=== PATIENT | male | born 1940 | race Hispanic/Latino ===

== ENCOUNTER 2018-06-06 14:34 | Inpatient (IN) | payer MEDICARE ==
[2018-06-06] MEDS ORDERED: SUBLIMAZE IV ONE ×2 (15:52→18:57)
[2018-06-06] MEDS ORDERED: ZOFRAN IV ONE (15:52)
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
[2018-06-06 18:14] LABS: Hematocrit 44.3 % (35.5-45.6); Hemoglobin 14.4 gm/dl (11.8-15.2); Mean Corpuscular HGB Conc 33 % (32-34); Mean Corpuscular Volume 89 fl (84-94); Platelet Count 198 K/mm3 (140-440); Red Blood Count 4.98 M/mm3 (3.65-5.03); Red Cell Distribution Width 14.5 % (13.2-15.2)
[2018-06-06 18:22] LABS: INR 1.17 (0.87-1.13); Partial Thromboplastin Time 26.3 Sec. (24.2-36.6)
--- NOTE | 2018-06-06 19:18 | XRay Report ---
FINAL REPORT EXAM: XR TIBIA FIBULA 2V RT HISTORY: pain after fall TECHNIQUE: Left lower leg PA and lateral views PRIORS: None. FINDINGS: No fracture is identified. The joint spaces are within normal limits. No focal bony lesion identified . No radiopaque foreign body seen. IMPRESSION: Negative no acute abnormality.
--- NOTE | 2018-06-06 19:19 | XRay Report ---
FINAL REPORT PROCEDURE: XR HIP 2-3V RT TECHNIQUE: Two AP views of the pelvis were obtained as well as a cross-table lateral view of the lef t hip. HISTORY: pain after fall COMPARISON: No prior studies are available for comparison. FINDINGS: No fracture or dislocation visualized. Mild to moderate degenerative changes seen lower lumbar spine and SI joints. Minimal degenerative changes seen in the hips. Large left inguinal hernia containing l oops of bowel appears to be visualized on the left. IMPRESSION: Degenerative changes are present. No definite fracture or dislocation is seen. If clinically indicate d CT scan could be obtained for further evaluation. Large left inguinal hernia containing loops of bowel appears to be visualized.
--- NOTE | 2018-06-06 19:19 | XRay Report ---
FINAL REPORT EXAM: XR SHOULDER 2+V RT HISTORY: pain after fall TECHNIQUE: Right shoulder three views PRIORS: None. FINDINGS: There is severe narrowing at the glenohumeral joint space with prominent inferior osteophyte. There i s superior migration of the humerus narrowing the subacromial joint space. A no acute fracture or dis location is identified. Adjacent bony and soft tissue structures are unremarkable. IMPRESSION: Advanced degenerative changes at the shoulder with marked joint space narrowing
--- NOTE | 2018-06-06 19:19 | Cat Scan Report ---
FINAL REPORT EXAM: CT CERVICAL SPINE WO CON HISTORY: pain after fall TECHNIQUE: CT cervical spine with reconstructions PRIORS: None. FINDINGS: Vertebral bodies demonstrate normal height and alignment. There is multilevel degenerative disc space narrowing with disc space narrowing from C3-C4 through C7-T1. Anterior and posterior osteophytes not ed. Facet joint arthropathy noted throughout the cervical spine. The facet joints demonstrate normal alignment. The spinous processes are intact. Craniocervical junction is unremarkable. C1 and C2 are intact. 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 No acute traumatic abnormality identified
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
--- NOTE | 2018-06-06 19:19 | XRay Report ---
FINAL REPORT EXAM: XR KNEE 3V RT HISTORY: pain after fall TECHNIQUE: Right knee three views PRIORS: None. FINDINGS: There is marked tricompartmental joint space narrowing. There is lateral meniscal calcification prese nt. No acute fracture identified. No evidence for joint effusion. 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 No acute traumatic abnormality identified
[2018-06-06 19:21] LABS: Basophils % (Manual) 0 % (0.0-1.8); Eosinophils % (Manual) 0 % (0.0-4.3); Total Cells Counted 100
[2018-06-06 19:22] LABS: Platelet Estimate Consistent w Auto; RBC Morphology Normal
[2018-06-06 19:27] LABS: BUN/Creatinine Ratio 20; Blood Urea Nitrogen 40 mg/dL (9-20)
[2018-06-06 19:28] LABS: Calcium 9.3 mg/dL (8.4-10.2); Creatine Kinase MB 3.1 ng/mL (0.0-4.0)
[2018-06-06] MEDS ORDERED: KIONEX PO ONE (19:40)
[2018-06-06] MEDS ORDERED: PLAVIX PO ONE (19:40)
[2018-06-06 19:41] LABS: Bilirubin,Urine NEG (Negative); Blood,Urine MOD (Negative); Color,Urine Yellow (Yellow); Mucus,Urine FEW /HPF; Urobilinogen,Urine < 2.0 mg/dL (<2.0)
--- NOTE | 2018-06-06 20:49 | History and Physical Report ---
History of Present Illness Date of examination: 06/06/18 Medications and Allergies Allergies Allergy/AdvReac Type Severity Reaction Status Date / Time Penicillins Allergy Unknown Verified 06/06/18 14:55 Sulfa (Sulfonamide Allergy Unknown Verified 06/06/18 14:55 Antibiotics) Exam - Constitutional Vitals: Temp Pulse Resp BP Pulse Ox 98.8 F 96 H 20 140/77 96 06/06/18 14:51 06/06/18 20:30 06/06/18 20:30 06/06/18 20:30 06/06/18 20:30 Results - Labs CBC & Chem 7: 06/06/18 15:50 06/06/18 15:50 Labs: Laboratory Last Values WBC 23.3 K/mm3 (4.5-11.0) H 06/06/18 15:50 RBC 4.98 M/mm3 (3.65-5.03) 06/06/18 15:50 Hgb 14.4 gm/dl (11.8-15.2) 06/06/18 15:50 Hct 44.3 % (35.5-45.6) 06/06/18 15:50 MCV 89 fl (84-94) 06/06/18 15:50 MCH 29 pg (28-32) 06/06/18 15:50 MCHC 33 % (32-34) 06/06/18 15:50 RDW 14.5 % (13.2-15.2) 06/06/18 15:50 Plt Count 198 K/mm3 (140-440) 06/06/18 15:50 Add Manual Diff Complete 06/06/18 15:50 Total Counted 100 06/06/18 15:50 Seg Neuts % (Manual) 85.0 % (40.0-70.0) H 06/06/18 15:50 Band Neutrophils % 0 % 06/06/18 15:50 Lymphocytes % (Manual) 3.0 % (13.4-35.0) L 06/06/18 15:50 Reactive Lymphs % (Man) 0 % 06/06/18 15:50 Monocytes % (Manual) 12.0 % (0.0-7.3) H 06/06/18 15:50 Eosinophils % (Manual) 0 % (0.0-4.3) 06/06/18 15:50 Basophils % (Manual) 0 % (0.0-1.8) 06/06/18 15:50 Metamyelocytes % 0 % 06/06/18 15:50 Myelocytes % 0 % 06/06/18 15:50 Promyelocytes % 0 % 06/06/18 15:50 Blast Cells % 0 % 06/06/18 15:50 Nucleated RBC % Not Reportable 06/06/18 15:50 Seg Neutrophils # Man 19.8 K/mm3 (1.8-7.7) H 06/06/18 15:50 Band Neutrophils # 0.0 K/mm3 06/06/18 15:50 Lymphocytes # (Manual) 0.7 K/mm3 (1.2-5.4) L 06/06/18 15:50 Abs React Lymphs (Man) 0.0 K/mm3 06/06/18 15:50 Monocytes # (Manual) 2.8 K/mm3 (0.0-0.8) H 06/06/18 15:50 Eosinophils # (Manual) 0.0 K/mm3 (0.0-0.4) 06/06/18 15:50 Basophils # (Manual) 0.0 K/mm3 (0.0-0.1) 06/06/18 15:50 Metamyelocytes # 0.0 K/mm3 06/06/18 15:50 Myelocytes # 0.0 K/mm3 06/06/18 15:50 Promyelocytes # 0.0 K/mm3 06/06/18 15:50 Blast Cells # 0.0 K/mm3 06/06/18 15:50 WBC Morphology Not Reportable 06/06/18 15:50 Hypersegmented Neuts Not Reportable 06/06/18 15:50 Hyposegmented Neuts Not Reportable 06/06/18 15:50 Hypogranular Neuts Not Reportable 06/06/18 15:50 Smudge Cells Not Reportable 06/06/18 15:50 Toxic Granulation Not Reportable 06/06/18 15:50 Toxic Vacuolation Not Reportable 06/06/18 15:50 Dohle Bodies Not Reportable 06/06/18 15:50 Pelger-Huet Anomaly Not Reportable 06/06/18 15:50 Stefania Rods Not Reportable 06/06/18 15:50 Platelet Estimate Consistent w auto 06/06/18 15:50 Clumped Platelets Not Reportable 06/06/18 15:50 Plt Clumps, EDTA Not Reportable 06/06/18 15:50 Large Platelets Not Reportable 06/06/18 15:50 Giant Platelets Not Reportable 06/06/18 15:50 Platelet Satelliting Not Reportable 06/06/18 15:50 Plt Morphology Comment Not Reportable 06/06/18 15:50 RBC Morphology Normal 06/06/18 15:50 Dimorphic RBCs Not Reportable 06/06/18 15:50 Polychromasia Not Reportable 06/06/18 15:50 Hypochromasia Not Reportable 06/06/18 15:50 Poikilocytosis Not Reportable 06/06/18 15:50 Anisocytosis Not Reportable 06/06/18 15:50 Microcytosis Not Reportable 06/06/18 15:50 Macrocytosis Not Reportable 06/06/18 15:50 Spherocytes Not Reportable 06/06/18 15:50 Pappenheimer Bodies Not Reportable 06/06/18 15:50 Sickle Cells Not Reportable 06/06/18 15:50 Target Cells Not Reportable 06/06/18 15:50 Tear Drop Cells Not Reportable 06/06/18 15:50 Ovalocytes Not Reportable 06/06/18 15:50 Helmet Cells Not Reportable 06/06/18 15:50 Yeh-Baileyton Bodies Not Reportable 06/06/18 15:50 Norco Rings Not Reportable 06/06/18 15:50 Cassy Cells Not Reportable 06/06/18 15:50 Bite Cells Not Reportable 06/06/18 15:50 Crenated Cell Not Reportable 06/06/18 15:50 Elliptocytes Not Reportable 06/06/18 15:50 Acanthocytes (Spur) Not Reportable 06/06/18 15:50 Rouleaux Not Reportable 06/06/18 15:50 Hemoglobin C Crystals Not Reportable 06/06/18 15:50 Schistocytes Not Reportable 06/06/18 15:50 Malaria parasites Not Reportable 06/06/18 15:50 Enoch Bodies Not Reportable 06/06/18 15:50 Hem Pathologist Commnt No 06/06/18 15:50 PT 15.3 Sec. (12.2-14.9) H 06/06/18 15:50 INR 1.17 (0.87-1.13) H 06/06/18 15:50 APTT 26.3 Sec. (24.2-36.6) 06/06/18 15:50 Sodium 139 mmol/L (137-145) 06/06/18 15:50 Potassium 5.4 mmol/L (3.6-5.0) H 06/06/18 15:50 Chloride 106.1 mmol/L (98-107) 06/06/18 15:50 Carbon Dioxide 19 mmol/L (22-30) L 06/06/18 15:50 Anion Gap 19 mmol/L 06/06/18 15:50 BUN 40 mg/dL (9-20) H 06/06/18 15:50 Creatinine 2.0 mg/dL (0.8-1.5) H 06/06/18 15:50 Estimated GFR 33 ml/min 06/06/18 15:50 BUN/Creatinine Ratio 20 % 06/06/18 15:50 Glucose 108 mg/dL (75-100) H 06/06/18 15:50 Calcium 9.3 mg/dL (8.4-10.2) 06/06/18 15:50 Total Creatine Kinase 242 units/L (55-170) H 06/06/18 15:50 CK-MB (CK-2) 3.1 ng/mL (0.0-4.0) 06/06/18 15:50 CK-MB (CK-2) Rel Index 1.2 (0-4) 06/06/18 15:50 Troponin T < 0.010 ng/mL (0.00-0.029) 06/06/18 15:50 Urine Color Yellow (Yellow) 06/06/18 18:44 Urine Turbidity Clear (Clear) 06/06/18 18:44 Urine pH 5.0 (5.0-7.0) 06/06/18 18:44 Ur Specific Vincent 1.013 (1.003-1.030) 06/06/18 18:44 Urine Protein 30 mg/dl mg/dL (Negative) 06/06/18 18:44 Urine Glucose (UA) Neg mg/dL (Negative) 06/06/18 18:44 Urine Ketones Neg mg/dL (Negative) 06/06/18 18:44 Urine Blood Mod (Negative) 06/06/18 18:44 Urine Nitrite Pos (Negative) 06/06/18 18:44 Urine Bilirubin Neg (Negative) 06/06/18 18:44 Urine Urobilinogen < 2.0 mg/dL (<2.0) 06/06/18 18:44 Ur Leukocyte Esterase Mod (Negative) 06/06/18 18:44 Urine WBC (Auto) 53.0 /HPF (0.0-6.0) H 06/06/18 18:44 Urine RBC (Auto) 1.0 /HPF (0.0-6.0) 06/06/18 18:44 Urine Mucus Few /HPF 06/06/18 18:44 - Imaging and Cardiology Imaging and Cardiology: CT C Spine 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 There is evidence of mild atrophy and gliosis. No other abnormalities are identified. If clinical symptoms persist or worsen consider follow-up CT scan or MRI for further evaluation. Hip Xray IMPRESSION: Degenerative changes are present. No definite fracture or dislocation is seen. If clinically indicated CT scan could be obtained for further evaluation. Large left inguinal hernia containing loops of bowel appears to be visualized. Knee X ray Right knee three views PRIORS: None. FINDINGS: There is marked tricompartmental joint space narrowing. There is lateral meniscal calcification present. No acute fracture identified. No evidence for joint effusion. IMPRESSION: Advanced tricompartmental DJD. Meniscal calcification may reflect underlying CPPD a rthropathy. No acute traumatic abnormality identified \ Rt Shoulder There is severe narrowing at the glenohumeral joint space with prominent inferior osteophyte. There is superior migration of the humerus narrowing the subacromial joint space. A no acute fracture or dislocation is identified. Adjac ent bony and soft tissue structures are unremarkable. IMPRESSION: Advanced degenerative changes at the shoulder with marked joint space narrowing TIBIA FIBULA 2V RT HISTORY: pain after fall TECHNIQUE: Left lower leg PA and lateral views PRIORS: None. FINDINGS: No fracture is identified. The joint spaces are within normal limits. No focal bony lesion identified. No radiopaque foreign body seen. IMPRESSION: Negative no acute abnormality.
[2018-06-06] MEDS ORDERED: ZOFRAN IV PRN (21:11)
[2018-06-06] MEDS ORDERED: TYLENOL PO PRN (21:11)
[2018-06-06] MEDS ORDERED: IBUPROFEN PO PRN (21:12)
[2018-06-06] MEDS ORDERED: COZAAR PO ONE (21:15)
[2018-06-06] MEDS ORDERED: PLAVIX ONE (21:44)
[2018-06-07] MEDS: NACL 0.9% 1000 ML 1,000 ML IV SCH ×2 (01:15→14:32)
[2018-06-07] MEDS: LOVENOX SUB-Q SCH ×3 (01:15→21:36)
[2018-06-07] MEDS: SODIUM CHLORIDE FLUSH SYRINGE 10 ML IV SCH ×3 (01:15→21:38)
[2018-06-07] MEDS: DILAUDID IV PRN ×6 (01:29→21:36)
--- NOTE | 2018-06-07 02:28 | Event Note ---
Date: 06/06/18 See H/p in reports Frequent falls Alone in Home most of tne time
--- NOTE | 2018-06-07 04:40 | History and Physical Report ---
CHIEF COMPLAINT: Frequent falls. HISTORY OF PRESENT ILLNESS: A 78-year-old male with history of severe arthritis and hypertension, has been falling for the past 1 month and did not tell his son or others. Today, he fell down twice. Second time, he could not get up and he was lying in the same place for about 5 hours. The patient does not use walker. No loss of consciousness. No syncope. The patient has pain in the right shoulder and right knee about 8/10. PAST MEDICAL HISTORY: Significant for no hypertension. PAST SURGICAL HISTORY: None. SOCIAL HISTORY: Does not smoke. Lives alone and son goes to work. FAMILY HISTORY: None. REVIEW OF SYSTEMS: Significant for pain in right shoulder, right knee and right side of the body. Otherwise, review of systems negative. PHYSICAL EXAMINATION: GENERAL: Elderly male, cooperative during examination. VITAL SIGNS: Temperature 98.8, pulse is 106, respirations 20, blood pressure 154/98. HEENT: Unremarkable. Pupils are equal and reactive. NECK: Supple, no lymphadenopathy, no thyromegaly. LUNGS: Clear to auscultation and percussion. Good air entry. CARDIOVASCULAR: S1, S2 heard. No gallop, no murmur, no rub. Apical impulse in the left fifth intercostal space and midclavicular line. ABDOMEN: Soft and benign. No hepatosplenomegaly. No guarding, no rigidity. Hernial orifices are normal. CENTRAL NERVOUS SYSTEM: Left inguinal hernia present. LABORATORY DATA: White count is 23,300, H and H is 14.4 and 44.3, BUN and creatinine 40 and 2.0, potassium is 5.4. Glucose is 108. Right hip x-ray, right shoulder x-ray, right knee x-ray, right tib-fib x-ray showed no fracture. CT of the head and cervical CT negative. CT of the C-spine showed degenerative arthritis. ASSESSMENT AND PLAN: 1. Frequent falls. The patient does not use walker. The patient needs walker. Also, acute rehabilitation. Maybe long-term facility for 4-6 weeks. 2. Hypertension. Continue antihypertensives.-[id number] or Losartan 50 mg po qd 3. Deep venous thrombosis prophylaxis, Lovenox 40 mg subcutaneous daily and GI prophylaxis 4. Leukocytosis, possible demargination. No source of infection found.Patient on Prednisone 20 mg po every 3 days or when he wants to take it-Prescribed by Dr Jessie Crowell a direct support worker for his arthritis.D/w daughter and i stopped the prednisone which may be sausing the Leukocytosis. 5.Hypothyroidism Cont Levothyroxine.Check TSH JOB# [id number] VSM/NTS SAIGED
[2018-06-07 05:26] LABS: Basophils # (Auto) 0.1 K/mm3 (0.0-0.1); Basophils % (Auto) 0.3 % (0.0-1.8); Eosinophils # (Auto) 0.1 K/mm3 (0.0-0.4); Eosinophils % (Auto) 0.7 % (0.0-4.3); Hematocrit 41.9 % (35.5-45.6); Hemoglobin 13.4 gm/dl (11.8-15.2); Lymphocytes # (Auto) 1.6 K/mm3 (1.2-5.4); Lymphocytes % (Auto) 8.3 % (13.4-35.0); Mean Corpuscular HGB Conc 32 % (32-34); Mean Corpuscular Volume 90 fl (84-94); Monocytes # (Auto) 1.7 K/mm3 (0.0-0.8); Monocytes % (Auto) 9.2 % (0.0-7.3); Platelet Count 168 K/mm3 (140-440); Red Blood Count 4.66 M/mm3 (3.65-5.03); Red Cell Distribution Width 14.6 % (13.2-15.2)
[2018-06-07 05:41] LABS: Albumin 3.7 g/dL (3.9-5); Calcium 8.6 mg/dL (8.4-10.2)
[2018-06-07] MEDS ORDERED: SYNTHROID PO SCH (06:00)
[2018-06-07] MEDS ORDERED: SYNTHROID PO NR (08:00)
--- NOTE | 2018-06-07 08:05 | Progress Note ---
Assessment and Plan Assessment and plan: The patient is 78-year-old male with past medical hx of HTN and severe Arthritis on chronic prednisone presenting with chief complaint of right-sided weakness and fall. The patient states this morning his right knee buckled causing him to fall striking both his shoulders and the back of his head the patient states family helped him to the sofa. According to documentation from the ED The patient states he later attempted to go to the bathroom and while standing suddenly felt woozy and felt himself falling towards his left. Patient states he noticed weakness in his right upper extremity and right lower extremity as he fell to the ground. Patient denies loss of consciousness but states he was unable to move his right lower extremity and had a weakness in the right upper extremity forcing him to stay on the ground for approximately 5 hours. The patient eventually called to the cell phone and called family who came to the home, broke in and called EMS. The patient states he is now able to move his right lower extremity but has significant pain in the right knee, neck and right shoulder. The patient gets his pain score of 10/10. Patient denies dysarthria or dysphagia. Patient states she had numbness in the left index finger, middle finger and ring finger for approximately 5 hours. 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 - Case management to discuss with family about appropriateness of patients current living condition - Patient recieved plavix in ED with concern for TIA. Doubt TIA OR CVA But will rule out. - Neurology consult. MRI, Carotid ultrasound, statins -DVT/GI prophy Discussed with Patient and family. will also consider SNF if PT so advise. History Interval history: Patient is seen today for: Multiple small right-sided joints pains Seen and examined at bedside; 24hour events reviewed; nursing staff ; no adverse overnight events reported to me; Denies any chest pain, nausea, vomiting, diarrhea No fever noted blood pressure controlled Hospitalist Physical - Physical exam Narrative exam: VITAL SIGNS: Reviewed. GENERAL: The patient appeared well nourished and normally developed, Lethergic . Vital signs as documented. HEAD: No signs of head trauma. EYES: Pupils are equal. Extraocular motions intact. EARS: Hearing grossly intact. MOUTH: Oropharynx is normal. NECK: No adenopathy, no JVD. CHEST: Chest with clear breath sounds bilaterally. No wheezes, rales, or rhonchi. CARDIAC: Regular rate and rhythm. S1 and S2, without murmurs, gallops, or rubs. VASCULAR: No Edema. Peripheral pulses normal and equal in all extremities. ABDOMEN: Soft, without detectable tenderness. No sign of distention. No rebound or guarding, and no masses palpated. Bowel Sounds normal. MUSCULOSKELETAL: limited range of motion at the . Extremities without clubbing, cyanosis or edema. NEUROLOGIC EXAM: Alert and oriented x 3. No focal sensory or strength deficits. Speech normal. Follows commands. PSYCHIATRIC: Mood normal. SKIN: No rash or lesions. - Constitutional Vitals: Temp Pulse Resp BP Pulse Ox 98.8 F 99 H 20 138/58 94 06/06/18 14:51 06/06/18 23:20 06/07/18 03:42 06/06/18 23:20 06/06/18 23:20 Results - Labs CBC & Chem 7: 06/07/18 04:29 06/07/18 04:29 Labs: Laboratory Last Values WBC 18.8 K/mm3 (4.5-11.0) H 06/07/18 04:29 RBC 4.66 M/mm3 (3.65-5.03) 06/07/18 04:29 Hgb 13.4 gm/dl (11.8-15.2) 06/07/18 04:29 Hct 41.9 % (35.5-45.6) 06/07/18 04:29 MCV 90 fl (84-94) 06/07/18 04:29 MCH 29 pg (28-32) 06/07/18 04:29 MCHC 32 % (32-34) 06/07/18 04:29 RDW 14.6 % (13.2-15.2) 06/07/18 04:29 Plt Count 168 K/mm3 (140-440) 06/07/18 04:29 Lymph % (Auto) 8.3 % (13.4-35.0) L 06/07/18 04:29 Starr % (Auto) 9.2 % (0.0-7.3) H 06/07/18 04:29 Eos % (Auto) 0.7 % (0.0-4.3) 06/07/18 04: Baso % (Auto) 0.3 % (0.0-1.8) 06/07/18 04: Lymph # 1.6 K/mm3 (1.2-5.4) 06/07/18 04: Starr # 1.7 K/mm3 (0.0-0.8) H 06/07/18 04:29 Eos # 0.1 K/mm3 (0.0-0.4) 06/07/18 04: Baso # 0.1 K/mm3 (0.0-0.1) 06/07/18 04:29 Add Manual Diff Complete 06/06/18 15:50 Total Counted 100 06/06/18 15:50 Seg Neutrophils % 81.5 % (40.0-70.0) H 06/07/18 04:29 Seg Neuts % (Manual) 85.0 % (40.0-70.0) H 06/06/18 15:50 Band Neutrophils % 0 % 06/06/18 15:50 Lymphocytes % (Manual) 3.0 % (13.4-35.0) L 06/06/18 15:50 Reactive Lymphs % (Man) 0 % 06/06/18 15:50 Monocytes % (Manual) 12.0 % (0.0-7.3) H 06/06/18 15:50 Eosinophils % (Manual) 0 % (0.0-4.3) 06/06/18 15:50 Basophils % (Manual) 0 % (0.0-1.8) 06/06/18 15:50 Metamyelocytes % 0 % 06/06/18 15:50 Myelocytes % 0 % 06/06/18 15:50 Promyelocytes % 0 % 06/06/18 15:50 Blast Cells % 0 % 06/06/18 15:50 Nucleated RBC % Not Reportable 06/06/18 15:50 Seg Neutrophils # 15.3 K/mm3 (1.8-7.7) H 06/07/18 04:29 Seg Neutrophils # Man 19.8 K/mm3 (1.8-7.7) H 06/06/18 15:50 Band Neutrophils # 0.0 K/mm3 06/06/18 15:50 Lymphocytes # (Manual) 0.7 K/mm3 (1.2-5.4) L 06/06/18 15:50 Abs React Lymphs (Man) 0.0 K/mm3 06/06/18 15:50 Monocytes # (Manual) 2.8 K/mm3 (0.0-0.8) H 06/06/18 15:50 Eosinophils # (Manual) 0.0 K/mm3 (0.0-0.4) 06/06/18 15:50 Basophils # (Manual) 0.0 K/mm3 (0.0-0.1) 06/06/18 15:50 Metamyelocytes # 0.0 K/mm3 06/06/18 15:50 Myelocytes # 0.0 K/mm3 06/06/18 15:50 Promyelocytes # 0.0 K/mm3 06/06/18 15:50 Blast Cells # 0.0 K/mm3 06/06/18 15:50 WBC Morphology Not Reportable 06/06/18 15:50 Hypersegmented Neuts Not Reportable 06/06/18 15:50 Hyposegmented Neuts Not Reportable 06/06/18 15:50 Hypogranular Neuts Not Reportable 06/06/18 15:50 Smudge Cells Not Reportable 06/06/18 15:50 Toxic Granulation Not Reportable 06/06/18 15:50 Toxic Vacuolation Not Reportable 06/06/18 15:50 Dohle Bodies Not Reportable 06/06/18 15:50 Pelger-Huet Anomaly Not Reportable 06/06/18 15:50 Stefania Rods Not Reportable 06/06/18 15:50 Platelet Estimate Consistent w auto 06/06/18 15:50 Clumped Platelets Not Reportable 06/06/18 15:50 Plt Clumps, EDTA Not Reportable 06/06/18 15:50 Large Platelets Not Reportable 06/06/18 15:50 Giant Platelets Not Reportable 06/06/18 15:50 Platelet Satelliting Not Reportable 06/06/18 15:50 Plt Morphology Comment Not Reportable 06/06/18 15:50 RBC Morphology Normal 06/06/18 15:50 Dimorphic RBCs Not Reportable 06/06/18 15:50 Polychromasia Not Reportable 06/06/18 15:50 Hypochromasia Not Reportable 06/06/18 15:50 Poikilocytosis Not Reportable 06/06/18 15:50 Anisocytosis Not Reportable 06/06/18 15:50 Microcytosis Not Reportable 06/06/18 15:50 Macrocytosis Not Reportable 06/06/18 15:50 Spherocytes Not Reportable 06/06/18 15:50 Pappenheimer Bodies Not Reportable 06/06/18 15:50 Sickle Cells Not Reportable 06/06/18 15:50 Target Cells Not Reportable 06/06/18 15:50 Tear Drop Cells Not Reportable 06/06/18 15:50 Ovalocytes Not Reportable 06/06/18 15:50 Helmet Cells Not Reportable 06/06/18 15:50 [place]he[place] Bodies Not Reportable 06/06/18 15:50 [place] Rings Not Reportable 06/06/18 15:50 [place] Cells Not Reportable 06/06/18 15:50 Bite Cells Not Reportable 06/06/18 15:50 Crenated Cell Not Reportable 06/06/18 15:50 Elliptocytes Not Reportable 06/06/18 15:50 Acanthocytes (Spur) Not Reportable 06/06/18 15:50 Rouleaux Not Reportable 06/06/18 15:50 Hemoglobin C Crystals Not Reportable 06/06/18 15:50 Schistocytes Not Reportable 06/06/18 15:50 Malaria parasites Not Reportable 06/06/18 15:50 Enoch Bodies Not Reportable 06/06/18 15:50 Hem Pathologist Commnt No 06/06/18 15:50 PT 15.3 Sec. (12.2-14.9) H 06/06/18 15:50 INR 1.17 (0.87-1.13) H 06/06/18 15:50 APTT 26.3 Sec. (24.2-36.6) 06/06/18 15:50 Sodium 141 mmol/L (137-145) 06/07/18 04:29 Potassium 5.2 mmol/L (3.6-5.0) H 06/07/18 04:29 Chloride 108.0 mmol/L (98-107) H 06/07/18 04:29 Carbon Dioxide 17 mmol/L (22-30) L 06/07/18 04:29 Anion Gap 21 mmol/L 06/07/18 04:29 BUN 35 mg/dL (9-20) H 06/07/18 04:29 Creatinine 2.0 mg/dL (0.8-1.5) H 06/07/18 04:29 Estimated GFR 33 ml/min 06/07/18 04:29 BUN/Creatinine Ratio 18 % 06/07/18 04:29 Glucose 116 mg/dL (75-100) H 06/07/18 04:29 Hemoglobin A1c 6.2 % (4-6) H 06/06/18 21:19 Calcium 8.6 mg/dL (8.4-10.2) 06/07/18 04:29 Total Bilirubin 0.90 mg/dL (0.1-1.2) 06/07/18 04:29 AST 18 units/L (5-40) 06/07/18 04:29 ALT 12 units/L (7-56) 06/07/18 04:29 Alkaline Phosphatase 105 units/L (35-129) 06/07/18 04:29 Total Creatine Kinase 242 units/L (55-170) H 06/06/18 15:50 CK-MB (CK-2) 3.1 ng/mL (0.0-4.0) 06/06/18 15:50 CK-MB (CK-2) Rel Index 1.2 (0-4) 06/06/18 15:50 Troponin T < 0.010 ng/mL (0.00-0.029) 06/06/18 15:50 Total Protein 6.1 g/dL (6.3-8.2) L 06/07/18 04:29 Albumin 3.7 g/dL (3.9-5) L 06/07/18 04:29 Albumin/Globulin Ratio 1.5 % 06/07/18 04:29 Urine Color Yellow (Yellow) 06/06/18 18:44 Urine Turbidity Clear (Clear) 06/06/18 18:44 Urine pH 5.0 (5.0-7.0) 06/06/18 18:44 Ur Specific [place] 1.013 (1.003-1.030) 06/06/18 18:44 Urine Protein 30 mg/dl mg/dL (Negative) 06/06/18 18:44 Urine Glucose (UA) Neg mg/dL (Negative) 06/06/18 18:44 Urine Ketones Neg mg/dL (Negative) 06/06/18 18:44 Urine Blood Mod (Negative) 06/06/18 18:44 Urine Nitrite Pos (Negative) 06/06/18 18:44 Urine Bilirubin Neg (Negative) 06/06/18 18:44 Urine Urobilinogen < 2.0 mg/dL (<2.0) 06/06/18 18:44 Ur Leukocyte Esterase Mod (Negative) 06/06/18 18:44 Urine WBC (Auto) 53.0 /HPF (0.0-6.0) H 06/06/18 18:44 Urine RBC (Auto) 1.0 /HPF (0.0-6.0) 06/06/18 18:44 Urine Mucus Few /HPF 06/06/18 18:44
[2018-06-07] MEDS ORDERED: NON-FORMULARY (Aspirin 81 MG) PO SCH (10:00)
--- NOTE | 2018-06-07 10:42 | Ultrasound Report ---
ULTRASOUND RENAL BILATERAL HISTORY: Acute kidney insufficiency. TECHNIQUE: transabdominal ultrasound with color Doppler interrogation. FINDINGS: The right kidney measures 11.4 x 4.4 x 5.7cm. Right renal cortex: 1.4cm. The left kidney measures 9.1 x 4.6 x 5.5cm. Left renal cortex: 0.9cm. The right kidney is normal size, contour and echotexture. No focal right renal lesion or hydronephrosis. The left kidney is mildly atrophic with diffuse cortical thinning. No focal left renal lesion or hydronephrosis. The bladder is partially empty but unremarkable. IMPRESSION: Slightly atrophic left kidney. No focal renal lesion, nephrolithiasis or hydronephrosis is identified.
--- NOTE | 2018-06-07 10:46 | Magnetic Resonance Report ---
MRI OF THE BRAIN WITHOUT CONTRAST: HISTORY: CVA PROCEDURE: Multiplanar, multisequence MR imaging of the brain without IV contrast was performed. FINDINGS: Compared to the CT head dated 06/06/18. MRI demonstrates mild nonspecific chronic white matter changes. Chronic millimetric focal infarcts are identified in the white matter of the anterior right frontal lobe and posterior left frontal lobe. No large chronic infarct. No evidence for acute ischemia, hemorrhage or mass. No extra-axial fluid collection. The midline structures are central. The basal cisterns are patent. Normal ventricular size. The orbital cavities and sella turcica demonstrate no abnormality. The visualized paranasal sinuses and mastoid air cells are well aerated. IMPRESSION: No acute intracranial process is identified. Mild nonspecific chronic white matter changes. 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
[2018-06-07] MEDS: ROCEPHIN/NS 1 GM/50 ML 1 GM/50 ML BAG IV SCH (10:51)
[2018-06-07] MEDS: COZAAR PO SCH (10:56)
[2018-06-07] MEDS: BABY ASPIRIN PO SCH (10:57)
[2018-06-07] MEDS ORDERED: KIONEX PO ONE (11:00)
--- NOTE | 2018-06-07 11:14 | Vascular Lab Report ---
FINAL REPORT EXAM: VL CAROTID DUPLEX BILAT HISTORY: cva TECHNIQUE: Grayscale and color and spectral Doppler ultrasound imaging of the carotid arteries was p erformed. PRIORS: None. FINDINGS: No areas of complete occlusion. Normal waveforms are seen throughout. No aneurysm. Normal flow is see n in the external carotid arteries. Antegrade flow is seen in the vertebral arteries. There is mild c alcified atherosclerotic plaque bilaterally. Peak systolic velocities in cm/s below: Right: CCA: 140 proximally, 146 distally ICA: 121 proximally, 84 mid, 88 distally ECA: 166 Left: CCA: 128 proximally, 93 distally ICA: 143 proximally, 120 mid, 60 distally ECA: 129 The right ICA:CCA ratio is 0.82. The left ICA:CCA ratio is 1.11. IMPRESSION: 1. 50-69 percent stenosis of the proximal left internal carotid artery. 2. Less than 50 percent stenosis of the right internal carotid artery.
[2018-06-07] MEDS ORDERED: DELTASONE PO SCH (12:00)
--- NOTE | 2018-06-07 13:36 | Progress Note ---
Subjective Date of service: 06/07/18 Interval history: WENT OVER THE CAROTID U/S REPORT AND NOTHINGS IS SURGICAL BUT LEFT SIDE WILL NEED CLOSE F/U IN THE FUTURE THE mti SHOWS NO ACUTE INFARCTS NOTED THERE ARE NUMBER OF CHRONIC IONFARCTS AND MEDICAL THERAPY IOS RECOMMENDED PLAN ARTHRITIS CARE OUTLINED FROM oa SPKE TO FAMILY AND THEY FEEL HE IS DOING BETTER Objective - Vital Sign Vital Signs - 12hr 06/07/18 06/07/18 06/07/18 03:42 08:11 10:56 Temperature 98.1 F Pulse Rate 104 H Respiratory 20 18 Rate Blood Pressure 102/52 121/65 O2 Sat by Pulse 92 Oximetry - Laboratory Findings CBC and BMP: 06/07/18 04:29 06/07/18 04:29 Abnormal Lab Findings: Abnormal Labs 06/06/18 06/06/18 06/06/18 15:50 15:50 15:50 WBC 23.3 H Lymph % (Auto) Posey % (Auto) Posey # Seg Neutrophils % Seg Neuts % (Manual) 85.0 H Lymphocytes % (Manual) 3.0 L Monocytes % (Manual) 12.0 H Seg Neutrophils # Seg Neutrophils # Man 19.8 H Lymphocytes # (Manual) 0.7 L Monocytes # (Manual) 2.8 H PT 15.3 H INR 1.17 H Potassium 5.4 H Chloride Carbon Dioxide 19 L BUN 40 H Creatinine 2.0 H Glucose 108 H Hemoglobin A1c Total Creatine Kinase 242 H Total Protein Albumin TSH Urine WBC (Auto) 06/06/18 06/06/18 06/07/18 18:44 21:19 04:29 WBC 18.8 H Lymph % (Auto) 8.3 L Posey % (Auto) 9.2 H Posey # 1.7 H Seg Neutrophils % 81.5 H Seg Neuts % (Manual) Lymphocytes % (Manual) Monocytes % (Manual) Seg Neutrophils # 15.3 H Seg Neutrophils # Man Lymphocytes # (Manual) Monocytes # (Manual) PT INR Potassium Chloride Carbon Dioxide BUN Creatinine Glucose Hemoglobin A1c 6.2 H Total Creatine Kinase Total Protein Albumin TSH Urine WBC (Auto) 53.0 H 06/07/18 06/07/18 04:29 07:54 WBC Lymph % (Auto) Posey % (Auto) Posey # Seg Neutrophils % Seg Neuts % (Manual) Lymphocytes % (Manual) Monocytes % (Manual) Seg Neutrophils # Seg Neutrophils # Man Lymphocytes # (Manual) Monocytes # (Manual) PT INR Potassium 5.2 H Chloride 108.0 H Carbon Dioxide 17 L BUN 35 H Creatinine 2.0 H Glucose 116 H Hemoglobin A1c Total Creatine Kinase Total Protein 6.1 L Albumin 3.7 L TSH 6.830 H Urine WBC (Auto)
[2018-06-07 16:24] LABS: Chol/HDL Ratio TNR %; HDL Cholesterol TNR mg/dL (40-59); LDL Cholesterol,Direct TNR mg/dL (50-130)
[2018-06-07] MEDS ORDERED: PRAVACHOL PO SCH (22:00)
--- NOTE | 2018-06-07 23:09 | Consultation ---
HISTORY OF PRESENT ILLNESS: This is a 78-year-old male, who presents with chief complaint of right-sided weakness and a fall. The patient has had a right knee buckling causing him to fall backwards. He apparently denied loss of consciousness, did not have a seizure, but also has some lower extremity weakness forcing him to the ground for approximately 5 hours. He was initially thought to have potentially a broken right leg. He was also explaining that he had severe pain. There was no dysarthria. He also had numbness of the index finger and middle finger of his right hand. His blood pressure was elevated at 154/98. He had a prior history of having acute injuries to his right leg. The patient had an MRI scan of the brain and CT scan, which showed periventricular white matter disease, prior history of old strokes, was felt to have a TIA, renal insufficiency, hyperkalemia, possible stroke. LABORATORY DATA: The patient had x-rays of the tibia and fibula of the right leg, which subsequently did not show any acute abnormality. The patient had an x-ray of the hip, which showed no fracture. He did, however, noted to have a large inguinal hernia and loops of bowel were visualized within the inguinal area. No fracture was noted, however, of the hip. There is advanced degenerative arthritis of the right shoulder with no fracture present and the patient also has severe advanced tricompartmental degenerative arthritis and meniscal calcification of the right knee, but no acute fracture. The cervical spine CT scan showed degenerative disk disease, facet joint arthropathy, C1 through C7, but intactness. Spinal canal did not show any compromise. PHYSICAL EXAMINATION: GENERAL: On examination, the patient was thought to have a closed head injury, cervical strain. NEUROLOGIC: On my examination showed the patient to be alert. He has slight clip on sunglasses inspector weakness to the right arm consistent with injury to his right arm. No evidence of palpable fractures noted, advanced arthritis of the hand is present. NEUROLOGIC: The patient's cranial nerves 2-12 are intact. Speech is intact. Affect is clear. Cranial nerves are intact. Motor and sensory examination, otherwise, unremarkable except for the noted traumatic injury to the right knee, right hip, right shoulder and the neck area. IMPRESSION: I suspect this patient has orthopedic injuries to multiple joints related to the fall. He may have had a transient ischemic attack. I have reviewed his carotid artery ultrasound and shows moderate stenosis of the left internal carotid artery. He does not have acute stroke on his MRI scan and I am recommending physical therapy at the present time. We would recommend medical therapy, control blood pressure, low-dose aspirin therapy and statin for prior history of strokes, although I do not think it is an acute stroke at this time. JOB# [id number] ROEBRT/NTS
[2018-06-08] MEDS ORDERED: SYNTHROID PO SCH (06:00)
[2018-06-08 06:44] LABS: Hematocrit 40.7 % (35.5-45.6); Mean Corpuscular HGB Conc 32 % (32-34); Mean Corpuscular Volume 90 fl (84-94); Platelet Count 202 K/mm3 (140-440); Red Blood Count 4.55 M/mm3 (3.65-5.03); Red Cell Distribution Width 14.3 % (13.2-15.2)
[2018-06-08 07:02] LABS: Calcium 8.3 mg/dL (8.4-10.2)
[2018-06-08 08:09] VITALS: BP 133/71
[2018-06-08] MEDS: DILAUDID IV PRN (08:10)
[2018-06-08] MEDS: SODIUM CHLORIDE FLUSH SYRINGE 10 ML IV PRN ×2 (08:15→16:22)
[2018-06-08] MEDS ORDERED: KIONEX PO ONE ×2 (09:00→15:15)
[2018-06-08] MEDS: COZAAR PO SCH (09:29)
[2018-06-08] MEDS: SODIUM CHLORIDE FLUSH SYRINGE 10 ML IV SCH (09:30)
[2018-06-08] MEDS: ROCEPHIN/NS 1 GM/50 ML 1 GM/50 ML BAG IV SCH (09:30)
[2018-06-08] MEDS: BABY ASPIRIN PO SCH (09:30)
--- NOTE | 2018-06-08 10:46 | Discharge Summary ---
Providers - Providers Date of Admission: 06/06/18 21:11 Attending physician: DESMOND MALCOLM MD 06/06/18 Consult to Case Management [CONS] Routine Services Needed at Discharge: Home Health Services DME Equipment [employer] Notified:: JOSE CARLOS Comment:: Needs Walker 06/07/18 07:09 Physical Therapy Evaluation and Treat [CONS] Urgent Comment: Reason For Exam: Debility,frequent falls 06/07/18 08:21 Consult to Physician [CONS] Routine Comment: Consulting Provider: JESSICA IVERSON Physician Instructions: Reason For Exam: cva 06/08/18 07:33 Consult to Physician [CONS] Routine Comment: called answ. serv. / ivanna Consulting Provider: HERMILA MAYBERRY Physician Instructions: Reason For Exam: yanely Primary care physician: YUDELKA AKHTAR Hospitalization Reason for admission: fall Condition: Stable Hospital course: The patient is 78-year-old male with past medical hx of HTN and severe Arthritis on chronic prednisone presenting with chief complaint of right-sided weakness and fall. The patient states this morning his right knee buckled causing him to fall striking both his shoulders and the back of his head the patient states family helped him to the sofa. According to documentation from the ED The patient states he later attempted to go to the bathroom and while standing suddenly felt woozy and felt himself falling towards his left. Patient states he noticed weakness in his right upper extremity and right lower extremity as he fell to the ground. Patient denies loss of consciousness but states he was unable to move his right lower extremity and had a weakness in the right upper extremity forcing him to stay on the ground for approximately 5 hours. The patient eventually called to the cell phone and called family who came to the home, broke in and called EMS. The patient states he is now able to move his right lower extremity but has significant pain in the right knee, neck and right shoulder. The patient gets his pain score of 10/10. Patient denies dysarthria or dysphagia. Patient states she had numbness in the left index finger, middle finger and ring finger for approximately 5 hours. Patient was seen with PT/OT and showed some improvement, we discussed extensively about his renal function. He reports chronic kidney injury and We performed multiple adjustment. 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 GENERAL: The patient appeared well nourished and normally developed. Vital signs as documented. HEAD: No signs of head trauma. EYES: Pupils are equal. Extraocular motions intact. EARS: Hearing grossly intact. MOUTH: Oropharynx is normal. NECK: No adenopathy, no JVD. CHEST: Chest with clear breath sounds bilaterally. No wheezes, rales, or rhonchi. CARDIAC: Regular rate and rhythm. S1 and S2, without murmurs, gallops, or rubs. VASCULAR: No Edema. Peripheral pulses normal and equal in all extremities. ABDOMEN: Soft, without detectable tenderness. No sign of distention. No rebound or guarding, and no masses palpated. Bowel Sounds normal. MUSCULOSKELETAL: limited range of motion at the . Extremities without clubbing, cyanosis or edema. NEUROLOGIC EXAM: Alert and oriented x 3. No focal sensory or strength deficits. Speech normal. Follows commands. PSYCHIATRIC: Mood normal. SKIN: No rash or lesions. - Constitutional Vitals: Temp Pulse Resp BP Pulse Ox 98.0 F 79 18 133/71 93 06/08/18 07:48 06/08/18 09:29 06/08/18 08:10 06/08/18 09:29 06/08/18 07:48 Plan Activity: advance as tolerated, fall precautions Diet: renal, other (STOP BANNANAS) Special Instructions: record daily weights, record daily BP diary Follow up with: YUDELKA AKHTAR MD [Primary Care Provider] - 3-5 Days HERMILA MAYBERRY MD [Staff Physician] - 7 Days Prescriptions: AtorvaSTATin [Lipitor] 40 mg PO QHS #30 tablet cephALEXin [Keflex] 500 mg PO Q12HR #6 cap Nystatin [Nystop Powder] 15 gm TP BID 30 Days powder
--- NOTE | 2018-06-08 14:59 | Consultation ---
Addendum entered and electronically signed by HAZEL ZARATE NP 06/08/18 16:08: Lasix 20 mg iv x 1 ordered as well Original Note: History of Present Illness - Reason for Consult Consult date: 06/08/18 chronic renal failure, hyperkalemia - History of Present Illness This is a 78 year old male who presented to the hospital on 06/06/2018 for a chief complaint of right-sided weakness and falling. Patient was evaluated for possible stroke and MRI revealed no acute intracranial process. Neurology saw Patient. Patient was noted on admission to have an elevated serum creatinine of 2.0 which has remained the same. Review of labs from Dr. Loza's office in January revealed a serum creatinine of 1.6. Patient likely has Chronic Kidney Disease due to Hypertension. Patient also states he recently saw a Urologist possibly for prostate issues. States he was recently treated with antibiotics for Pneumonia and Bronchitis. Patient was also noted to have an elevated potassium level of 5.2 on admission which wolfgang to 6.1 on recent lab draw. Sons at bedside states patient has not had a bowel movement in 3 days. Patient has history of Hypertension, Hypothyroidism, Hyperlipidemia, Arthritis, Prostate issue and CKD. We are being consulted for management of this patient's CKD and Hyperkalemia. Past History Past Medical History: arthritis, hypertension, hyperlipidemia, hypothyroidism Past Surgical History: No surgical history Social history: no significant social history Family history: no significant family history Medications and Allergies Allergies Allergy/AdvReac Type Severity Reaction Status Date / Time Penicillins Allergy Unknown Verified 06/06/18 14:55 Sulfa (Sulfonamide Allergy Unknown Verified 06/06/18 14:55 Antibiotics) Home Medications Medication Instructions Recorded Confirmed Last Taken Type Aspirin 81 mg PO DAILY 06/06/18 06/06/18 Unknown History Levothyroxine [Synthroid] 125 mcg PO QAM 06/06/18 06/06/18 Unknown History Olmesartan (Nf) [Benicar] 20 mg PO QDAY 06/06/18 06/06/18 Unknown History predniSONE [Deltasone] 20 mg PO UNK 06/06/18 06/06/18 Unknown History AtorvaSTATin [Lipitor] 40 mg PO QHS #30 tablet 06/08/18 Unknown Rx Nystatin [Nystop Powder] 15 gm TP BID 30 Days powder 06/08/18 Unknown Rx cephALEXin [Keflex] 500 mg PO Q12HR #6 cap 06/08/18 Unknown Rx Active Meds: Active Medications Acetaminophen (Tylenol) 650 mg PO Q4H PRN PRN Reason: Pain MILD(1-3)/Fever >100.5/RICHTER Aspirin (Baby Aspirin) 81 mg PO QDAY [facility] Last Admin: 06/08/18 09:30 Dose: 81 mg Documented by: Atorvastatin Calcium (Lipitor) 40 mg PO QHS [facility] Dextrose (D50w (25gm) Syringe) 25 ml IV ONCE ONE Stop: 06/08/18 15:49 Enoxaparin Sodium (Lovenox) 30 mg SUB-Q QDAY@2200 [facility] Last Admin: 06/07/18 21:36 Dose: 30 mg Documented by: Hydromorphone HCl (Dilaudid) 0.5 mg IV Q3H PRN PRN Reason: Pain , Severe (7-10) Last Admin: 06/08/18 08:10 Dose: 0.5 mg Documented by: Ceftriaxone Sodium (Rocephin/Ns 1 Gm/50 Ml) 1 gm in 50 mls @ 100 mls/hr IV Q24HR [facility]; Protocol Last Admin: 06/08/18 09:30 Dose: 100 mls/hr Documented by: Sodium Chloride (Nacl 0.9% 500 Ml) 500 mls @ 999 mls/hr IV ONCE ONE Stop: 06/08/18 16:13 Insulin Human Regular (Humulin R) 10 units IV ONCE ONE Stop: 06/08/18 15:49 Levothyroxine Sodium (Synthroid) 125 mcg PO DAILY@0600 [facility] Last Admin: 06/08/18 05:26 Dose: 125 mcg Documented by: Losartan Potassium (Cozaar) 50 mg PO QDAY [facility] Last Admin: 06/08/18 09:29 Dose: 50 mg Documented by: Ondansetron HCl (Zofran) 4 mg IV Q8H PRN PRN Reason: Nausea And Vomiting Last Admin: 06/07/18 21:35 Dose: 4 mg Documented by: Prednisone (Deltasone) 20 mg PO Q72HR [facility] Last Admin: 06/08/18 05:26 Dose: 20 mg Documented by: Sodium Bicarbonate (Sodium Bicarbonate 50meq Syringe) 50 meq IV ONCE ONE Stop: 06/08/18 15:48 Sodium Chloride (Sodium Chloride Flush Syringe 10 Ml) 10 ml IV BID [facility] Last Admin: 06/08/18 09:30 Dose: 10 ml Documented by: Sodium Chloride (Sodium Chloride Flush Syringe 10 Ml) 10 ml IV PRN PRN PRN Reason: LINE FLUSH Last Admin: 06/08/18 08:15 Dose: 10 ml Documented by: Sodium Polystyrene Sulfonate (Kionex) 30 gm PO ONCE ONE Stop: 06/08/18 15:16 Last Admin: 06/08/18 14:30 Dose: 30 gm Documented by: Review of Systems Constitutional: fatigue, weakness, poor appetite, no weight loss, no weight gain, no fever, no chills, no sweats Ears, nose, mouth and throat: no ear pain, no ear discharge, no tinnitis, no decreased hearing, no nose pain, no nasal congestion, no nasal discharge Cardiovascular: no chest pain, no orthopnea, no palpitations, no rapid/irregular heart beat, no lightheadedness, no shortness of breath Respiratory: no cough with sputum, no excessive sputum, no hemoptysis, no s hortness of breath, no dyspnea on exertion Gastrointestinal: no abdominal pain, no nausea, no vomiting, no diarrhea, no constipation, no change in bowel habits, no hematemesis Genitourinary Male: no hematuria, no flank pain, no discharge, no urinary frequency Rectal: no incontinence, no bleeding Musculoskeletal: limitation of motion, arthritis Integumentary: no rash, no pruritis, no redness, no sores, no wounds Neurological: weakness, balance difficulties, no transient paralysis, no paralysis Psychiatric: anxiety, change in appetite, no memory loss, no change in sleep habits, no sleep disturbances, no insomnia, no hypersomnia Endocrine: no cold intolerance, no heat intolerance, no polyphagia, no excessive thirst, no polydipsia, no polyuria Hematologic/Lymphatic: no easy bruising, no easy bleeding, no lymphadenopathy, no lymphedema Exam - Vital Signs Vital signs: Vital Signs Temp Pulse Resp BP Pulse Ox 98.8 F 106 H 20 154/98 98 06/06/18 14:51 06/06/18 14:51 06/06/18 14:51 06/06/18 14:51 06/06/18 14:51 - General Appearance General appearance: well-developed, appears stated age, fatigue EENT: ATNC, PERRL, hearing intact, vision intact Neck: Present: neck supple, trachea midline Respiratory: Decreased Breath Sounds Heart: regular, S1S2 Gastrointestinal: Present: normoactive bowel sounds Integumentary: warm and dry Neurologic: alert and oriented x3 Musculoskeletal: Present: decreased ROM Results - Lab Results 06/08/18 05:41 06/08/18 12:50 Most recent lab results Calcium 8.3 mg/dL (8.4-10.2) L 06/08/18 05:41 Assessment and Plan Hyperkalemia: -Kayexalate/Insulin/D50 -No BM in 3 days, Lactulose to help with BM -Will hold Losartan for now until Hyperkalemia resolves -Low potassium diet -Recheck potassium level this evening-1800 -Will consider HD if potassium level remains same or higher -Can be discharged only if potassium level is less than 5.5 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 No Hydronephrosis. -Will hold Losartan for now until Hyperkalemia resolves -Will order Amlodipine 5 mg po daily instead -Obtain urine lytes and protein labs -Avoid NSAID's -Monitor I/O's -Obtain daily weights Hypertension: -D/C Losartan due to Hyperkalemia -Start Amlodipine 5 mg po daily -Adjust regimen as needed Weakness: -PT/OT -Neurology saw patient
[2018-06-08] MEDS ORDERED: SENOKOT PO ONE (15:22)
[2018-06-08] MEDS ORDERED: CEPHULAC PO ONE (15:22)
--- NOTE | 2018-06-08 15:31 | Progress Note ---
Assessment and Plan Assessment and plan: The patient is 78-year-old male with past medical hx of HTN and severe Arthritis on chronic prednisone presenting with chief complaint of right-sided weakness and fall. The patient states this morning his right knee buckled causing him to fall striking both his shoulders and the back of his head the patient states family helped him to the sofa. According to documentation from the ED The patient states he later attempted to go to the bathroom and while standing suddenly felt woozy and felt himself falling towards his left. Patient states he noticed weakness in his right upper extremity and right lower extremity as he fell to the ground. Patient denies loss of consciousness but states he was unable to move his right lower extremity and had a weakness in the right upper extremity forcing him to stay on the ground for approximately 5 hours. The patient eventually called to the cell phone and called family who came to the home, broke in and called EMS. The patient states he is now able to move his right lower extremity but has significant pain in the right knee, neck and right shoulder. The patient gets his pain score of 10/10. Patient denies dysarthria or dysphagia. Patient states she had numbness in the left index finger, middle finger and ring finger for approximately 5 hours. Patient was seen with PT/OT and showed some improvement, we discussed exte nsively about his renal function. He reports chronic kidney injury and We performed multiple adjustment. 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 - Case management to discuss with family about appropriateness of patients current living condition - Neurology input noted -DVT/GI prophy Will discharge home with home health if K is improved History Interval history: Patient is seen today for: Multiple small right-sided joints pains Seen and examined at bedside; 24hour events reviewed; nursing staff ; no adverse overnight events reported to me; Denies any chest pain, nausea, vomiting, diarrhea No fever noted blood pressure controlled Hospitalist Physical - Physical exam Narrative exam: VITAL SIGNS: Reviewed. GENERAL: The patient appeared well nourished and normally developed. Vital signs as documented. HEAD: No signs of head trauma. EYES: Pupils are equal. Extraocular motions intact. EARS: Hearing grossly intact. MOUTH: Oropharynx is normal. NECK: No adenopathy, no JVD. CHEST: Chest with clear breath sounds bilaterally. No wheezes, rales, or rhonchi. CARDIAC: Regular rate and rhythm. S1 and S2, without murmurs, gallops, or rubs. VASCULAR: No Edema. Peripheral pulses normal and equal in all extremities. ABDOMEN: Soft, without detectable tenderness. No sign of distention. No rebound or guarding, and no masses palpated. Bowel Sounds normal. MUSCULOSKELETAL: limited range of motion at the . Extremities without clubbing, cyanosis or edema. NEUROLOGIC EXAM: Alert and oriented x 3. No focal sensory or strength deficits. Speech normal. Follows commands. PSYCHIATRIC: Mood normal. SKIN: No rash or lesions. - Constitutional Vitals: Temp Pulse Resp BP Pulse Ox 98.0 F 79 18 133/71 93 06/08/18 07:48 06/08/18 10:00 06/08/18 10:00 06/08/18 09:29 06/08/18 10:00 Results - Labs CBC & Chem 7: 06/08/18 05:41 06/08/18 12:50 Labs: Laboratory Last Values WBC 17.9 K/mm3 (4.5-11.0) H 06/08/18 05:41 RBC 4.55 M/mm3 (3.65-5.03) 06/08/18 05:41 Hgb 13.0 gm/dl (11.8-15.2) 06/08/18 05:41 Hct 40.7 % (35.5-45.6) 06/08/18 05:41 MCV 90 fl (84-94) 06/08/18 05:41 MCH 29 pg (28-32) 06/08/18 05:41 MCHC 32 % (32-34) 06/08/18 05:41 RDW 14.3 % (13.2-15.2) 06/08/18 05:41 Plt Count 202 K/mm3 (140-440) 06/08/18 05:41 Lymph % (Auto) 8.3 % (13.4-35.0) L 06/07/18 04:29 [place] % (Auto) 9.2 % (0.0-7.3) H 06/07/18 04:29 Eos % (Auto) 0.7 % (0.0-4.3) 06/07/18 04:29 Baso % (Auto) 0.3 % (0.0-1.8) 06/07/18 04: Lymph # 1.6 K/mm3 (1.2-5.4) 06/07/18 04: Bradford # 1.7 K/mm3 (0.0-0.8) H 06/07/18 04: Eos # 0.1 K/mm3 (0.0-0.4) 06/07/18 04: Baso # 0.1 K/mm3 (0.0-0.1) 06/07/18 04:29 Add Manual Diff Complete 06/06/18 15:50 Total Counted 100 06/06/18 15:50 Seg Neutrophils % 81.5 % (40.0-70.0) H 06/07/18 04:29 Seg Neuts % (Manual) 85.0 % (40.0-70.0) H 06/06/18 15:50 Band Neutrophils % 0 % 06/06/18 15:50 Lymphocytes % (Manual) 3.0 % (13.4-35.0) L 06/06/18 15:50 Reactive Lymphs % (Man) 0 % 06/06/18 15:50 Monocytes % (Manual) 12.0 % (0.0-7.3) H 06/06/18 15:50 Eosinophils % (Manual) 0 % (0.0-4.3) 06/06/18 15:50 Basophils % (Manual) 0 % (0.0-1.8) 06/06/18 15:50 Metamyelocytes % 0 % 06/06/18 15:50 Myelocytes % 0 % 06/06/18 15:50 Promyelocytes % 0 % 06/06/18 15:50 Blast Cells % 0 % 06/06/18 15:50 Nucleated RBC % Not Reportable 06/06/18 15:50 Seg Neutrophils # 15.3 K/mm3 (1.8-7.7) H 06/07/18 04:29 Seg Neutrophils # Man 19.8 K/mm3 (1.8-7.7) H 06/06/18 15:50 Band Neutrophils # 0.0 K/mm3 06/06/18 15:50 Lymphocytes # (Manual) 0.7 K/mm3 (1.2-5.4) L 06/06/18 15:50 Abs React Lymphs (Man) 0.0 K/mm3 06/06/18 15:50 Monocytes # (Manual) 2.8 K/mm3 (0.0-0.8) H 06/06/18 15:50 Eosinophils # (Manual) 0.0 K/mm3 (0.0-0.4) 06/06/18 15:50 Basophils # (Manual) 0.0 K/mm3 (0.0-0.1) 06/06/18 15:50 Metamyelocytes # 0.0 K/mm3 06/06/18 15:50 Myelocytes # 0.0 K/mm3 06/06/18 15:50 Promyelocytes # 0.0 K/mm3 06/06/18 15:50 Blast Cells # 0.0 K/mm3 06/06/18 15:50 WBC Morphology Not Reportable 06/06/18 15:50 Hypersegmented Neuts Not Reportable 06/06/18 15:50 Hyposegmented Neuts Not Reportable 06/06/18 15:50 Hypogranular Neuts Not Reportable 06/06/18 15:50 Smudge Cells Not Reportable 06/06/18 15:50 Toxic Granulation Not Reportable 06/06/18 15:50 Toxic Vacuolation Not Reportable 06/06/18 15:50 Dohle Bodies Not Reportable 06/06/18 15:50 Pelger-Huet Anomaly Not Reportable 06/06/18 15:50 Stefania Rods Not Reportable 06/06/18 15:50 Platelet Estimate Consistent w auto 06/06/18 15:50 Clumped Platelets Not Reportable 06/06/18 15:50 Plt Clumps, EDTA Not Reportable 06/06/18 15:50 Large Platelets Not Reportable 06/06/18 15:50 Giant Platelets Not Reportable 06/06/18 15:50 Platelet Satelliting Not Reportable 06/06/18 15:50 Plt Morphology Comment Not Reportable 06/06/18 15:50 RBC Morphology Normal 06/06/18 15:50 Dimorphic RBCs Not Reportable 06/06/18 15:50 Polychromasia Not Reportable 06/06/18 15:50 Hypochromasia Not Reportable 06/06/18 15:50 Poikilocytosis Not Reportable 06/06/18 15:50 Anisocytosis Not Reportable 06/06/18 15:50 Microcytosis Not Reportable 06/06/18 15:50 Macrocytosis Not Reportable 06/06/18 15:50 Spherocytes Not Reportable 06/06/18 15:50 Pappenheimer Bodies Not Reportable 06/06/18 15:50 Sickle Cells Not Reportable 06/06/18 15:50 Target Cells Not Reportable 06/06/18 15:50 Tear Drop Cells Not Reportable 06/06/18 15:50 Ovalocytes Not Reportable 06/06/18 15:50 Helmet Cells Not Reportable 06/06/18 15:50 Yeh-[place] Bodies Not Reportable 06/06/18 15:50 [place] Rings Not Reportable 06/06/18 15:50 Cassy Cells Not Reportable 06/06/18 15:50 Bite Cells Not Reportable 06/06/18 15:50 Crenated Cell Not Reportable 06/06/18 15:50 Elliptocytes Not Reportable 06/06/18 15:50 Acanthocytes (Spur) Not Reportable 06/06/18 15:50 Rouleaux Not Reportable 06/06/18 15:50 Hemoglobin C Crystals Not Reportable 06/06/18 15:50 Schistocytes Not Reportable 06/06/18 15:50 Malaria parasites Not Reportable 06/06/18 15:50 Enoch Bodies Not Reportable 06/06/18 15:50 Hem Pathologist Commnt No 06/06/18 15:50 PT 15.3 Sec. (12.2-14.9) H 06/06/18 15:50 INR 1.17 (0.87-1.13) H 06/06/18 15:50 APTT 26.3 Sec. (24.2-36.6) 06/06/18 15:50 Sodium 140 mmol/L (137-145) 06/08/18 05:41 Potassium 6.1 mmol/L (3.6-5.0) H* 06/08/18 12:50 Chloride 106.8 mmol/L (98-107) 06/08/18 05:41 Carbon Dioxide 17 mmol/L (22-30) L 06/08/18 05:41 Anion Gap 22 mmol/L 06/08/18 05:41 BUN 39 mg/dL (9-20) H 06/08/18 05:41 Creatinine 2.1 mg/dL (0.8-1.5) H 06/08/18 05:41 Estimated GFR 31 ml/min 06/08/18 05:41 BUN/Creatinine Ratio 19 % 06/08/18 05:41 Glucose 178 mg/dL (75-100) H 06/08/18 05:41 Hemoglobin A1c 6.2 % (4-6) H 06/06/18 21:19 Calcium 8.3 mg/dL (8.4-10.2) L 06/08/18 05:41 Total Bilirubin 0.90 mg/dL (0.1-1.2) 06/07/18 04:29 AST 18 units/L (5-40) 06/07/18 04:29 ALT 12 units/L (7-56) 06/07/18 04:29 Alkaline Phosphatase 105 units/L (35-129) 06/07/18 04:29 Total Creatine Kinase 242 units/L (55-170) H 06/06/18 15:50 CK-MB (CK-2) 3.1 ng/mL (0.0-4.0) 06/06/18 15:50 CK-MB (CK-2) Rel Index 1.2 (0-4) 06/06/18 15:50 Troponin T < 0.010 ng/mL (0.00-0.029) 06/06/18 15:50 Total Protein 6.1 g/dL (6.3-8.2) L 06/07/18 04:29 Albumin 3.7 g/dL (3.9-5) L 06/07/18 04:29 Albumin/Globulin Ratio 1.5 % 06/07/18 04:29 Triglycerides TNR 06/07/18 16:01 Cholesterol TNR 06/07/18 16:01 LDL Cholesterol Direct TNR 06/07/18 16:01 HDL Cholesterol TNR 06/07/18 16:01 Cholesterol/HDL Ratio TNR 06/07/18 16:01 TSH 6.830 mlU/mL (0.270-4.200) H 06/07/18 07:54 Free T4 1.14 ng/dL (0.76-1.46) 06/07/18 07:54 Urine Color Yellow (Yellow) 06/06/18 18:44 Urine Turbidity Clear (Clear) 06/06/18 18:44 Urine pH 5.0 (5.0-7.0) 06/06/18 18:44 Ur Specific [place] 1.013 (1.003-1.030) 06/06/18 18:44 Urine Protein 30 mg/dl mg/dL (Negative) 06/06/18 18:44 Urine Glucose (UA) Neg mg/dL (Negative) 06/06/18 18:44 Urine Ketones Neg mg/dL (Negative) 06/06/18 18:44 Urine Blood Mod (Negative) 06/06/18 18:44 Urine Nitrite Pos (Negative) 06/06/18 18:44 Urine Bilirubin Neg (Negative) 06/06/18 18:44 Urine Urobilinogen < 2.0 mg/dL (<2.0) 06/06/18 18:44 Ur Leukocyte Esterase Mod (Negative) 06/06/18 18:44 Urine WBC (Auto) 53.0 /HPF (0.0-6.0) H 06/06/18 18:44 Urine RBC (Auto) 1.0 /HPF (0.0-6.0) 06/06/18 18:44 Urine Mucus Few /HPF 06/06/18 18:44 Nutrition/Malnutrition Assess - Dietary Evaluation Nutrition/Malnutrition Findings: Nutrition Notes Start: 06/07/18 14:52 Freq: Status: Active Protocol: Document 06/07/18 14:52 RM (Rec: 06/07/18 15:05 RM [id number]) Nutrition Notes Need for Assessment generated from: sql report writer Initial or Follow up Assessment Current Diagnosis Hypertension Other Pertinent Diagnosis TIA, RI, Recurrent falls Current Diet Cardiac Labs/Tests K 5.2 Pertinent Medications Reviewed Height 5 ft 9 in Weight 91.172 kg Usual Body Weight 85 kg [place] Body Weight (kg) 72.72 BMI 29.7 Subjective/Other Information Screened for skin risk. Bhavesh 18 points. Pt asleep at time of visit. Pt son in room at time of visit and answered questions. Stated that pt appetite [employer]ER was poor and he ate 1 meal daily for months. Stated UBW was 185-190 lbs 1 month ago. Burn Absent Trauma Absent #1 Nutrition Diagnosis Predicted suboptimal energy intake Etiology poor appetite As Evidenced by Signs and Symptoms pt son statement that [employer] pt was eating 1 meal daily for months Is patient on ventilator? No Is Patient Ambulatory and/or Out of Bed No REE-([facility]-confined to bed) 8.808 Calculation Used for Recommendations [facility] Additional Notes Protein Needs: 66-82g (0.8-1g/ kg, 82 kg adjBW) Fluid Needs: 1 ml/kcal Nutrition Intervention Change Diet Order: Continue current Add Supplement/Snack (indicate name/kcal Nepro Vanilla 1 daily /protein ) Provides kCal: 425 Provides Protein (gm) 19 Goal #1 Meet at least 75% of calorie and protein needs via PO and ONS intakes Anticipated Discharge Needs: Continue current Follow-Up By: 06/09/18 Additional Comments Follow for PO and ONS intakes
[2018-06-08] MEDS ORDERED: NACL 0.9% 500 ML 500 ML IV ONE (15:43)
[2018-06-08] MEDS ORDERED: HumuLIN R IV ONE (15:48)
[2018-06-08] MEDS ORDERED: D50W (25GM) Syringe IV ONE (15:48)
[2018-06-08] MEDS ORDERED: LASIX IV ONE (16:07)
== END 2018-06-08 21:45 | disposition home health service (06) | DRG 871 ==
LOC: ED 14:34 → 2B-ACE 21:11
PROVIDERS: ADMIT Internal Medicine; ATTEND Internal Medicine
DX: A41.9 Sepsis, unspecified organism (principal); N17.0 Acute kidney failure with tubular necrosis; N30.00 Acute cystitis without hematuria; G45.9 Transient cerebral ischemic attack, unspecified; E87.5 Hyperkalemia; R29.6 Repeated falls; I12.9 Hypertensive chronic kidney disease with stage 1 through stage 4 chronic kidney disease, or unspecified chronic kidney disease; G93.89 Other specified disorders of brain; K59.00 Constipation, unspecified; N18.3 Chronic kidney disease, stage 3 (moderate); M16.11 Unilateral primary osteoarthritis, right hip; M25.861 Other specified joint disorders, right knee; E03.9 Hypothyroidism, unspecified; W18.39XA Other fall on same level, initial encounter; Z79.52 Long term (current) use of systemic steroids; Z79.82 Long term (current) use of aspirin; Z88.0 Allergy status to penicillin; Z88.2 Allergy status to sulfonamides; Z79.899 Other long term (current) drug therapy; Y93.89 Activity, other specified; Y92.098 Other place in other non-institutional residence as the place of occurrence of the external cause; Y99.8 Other external cause status
CPT/HCPCS: 36415; 70450; 70551; 72125; 76770; 80048; 80053; 80061; 81001; 82550; 82553; 82962; 83036; 84132; 84439; 84443; 84484; 85007; 85025; 85027; 85610; 85730; 87086; 93005; 93010; 93880; G0378; A9270-GY; J0696; J1170; J1650; J1815; J1940; J2405; J3010; J7030; J7040; J7512